=== PATIENT | male | born 1955 | race Caucasian/White ===

== ENCOUNTER → 2021-08-20 | Outpatient (CLI) | payer MEDICARE ==
[~2021-08-20] VITALS: Ht 180.3 cm; Wt 102.1 kg
[2021-08-20] VITALS (7 sets, daily range): BP systolic 118–130; BP diastolic 62–77
[~2021-08-20] MED LIST: ACETAMINOPHEN 325 MG TAB PO ONE; ERGO1CAP23 PO; GLIP10TA9 PO; HYDR-4833 PO; METF-370 PO; PANT40TA2 PO; REGENERON 1200mg/250ml NS 250 ML IV ONE
[2021-08-28 09:52] LABS: % Iron Saturation 6.5 % (20-55)
== END | disposition home or self-care (01) ==
LOC: ER 12:03
PROVIDERS: ATTEND Internal Medicine
DX: U07.1 COVID-19 (principal); J96.10 Chronic respiratory failure, unspecified whether with hypoxia or hypercapnia; E11.9 Type 2 diabetes mellitus without complications; E07.9 Disorder of thyroid, unspecified
CPT/HCPCS: 36415; 82728; 83540; 83550; 85652; 86141; J7050; M0243; Q0244

== ENCOUNTER 2021-08-28 08:07 | Inpatient (IN) | payer MEDICARE ==
[~2021-08-28] VITALS: Ht 180.3 cm; Wt 96.5 kg
[2021-08-28 09:12] LABS: Basophils # (auto) 0.1 10 ^3/uL (0-0.2); Basophils % (auto) 1.4 % (0.0-2.0); Eosinophils # (auto) 0 10 ^3/uL (0-0.8); Eosinophils % (auto) 0.2 % (0.0-7.0); Hematocrit 31.2 % (41.0-53.0); Hemoglobin 10.5 g/dL (13.5-17.5); Lymphocytes # (auto) 0.7 10 ^3/uL (0.4-5.4); Lymphocytes % (auto) 8.1 % (10.0-50.0); Mean Corpuscular Hemoglobin 28.6 pg (28.0-32.0); Mean Corpuscular Hgb Conc. 33.6 g/dL (32.0-36.0); Mean Corpuscular Volume 85.1 fL (80.0-100.0); Monocytes # (auto) 1.1 10 ^3/uL (0-1.3); Monocytes % (auto) 12.1 % (0.0-12.0); Neutrophils % (auto) 78.2 % (37.0-80.0); Red Blood Cells 3.67 10^6/uL (4.5-5.90); Red Cell Distribution Width 13.8 % (11.8-14.3)
[2021-08-28] MEDS ORDERED: LACTATED RINGER'S 1,000 ML IV ONE (09:15)
[2021-08-28] MEDS ORDERED: DexAMETHasone SOD PHOS 10MG/1ML VIAL INJ IM ONE (09:15)
[2021-08-28 09:28] LABS: INR 1.21 (0.9-1.15); Partial Thromboplastin Time 31.4 sec (23.6-33.0)
[2021-08-28 09:35] LABS: Albumin 2.2 g/dL (3.4-5.0); Calcium 8.4 mg/dL (8.5-10.1); Magnesium 2.2 mg/dL (1.6-2.6); Potassium 3.6 mmol/L (3.5-5.1)
[2021-08-28 09:41] LABS: BUN/Creatinine Ratio 8.9; Bilirubin, Total 0.6 mg/dL (0.2-1.0); Total Protein 6.5 g/dL (6.4-8.2)
[2021-08-28] MEDS ORDERED: IOHEXOL 350 MG/ML 100ML IJ ONE (11:32)
[2021-08-28] MEDS ORDERED: REMDESIVIR PER PHARMACY 0 ML IV SCH (15:00)
[2021-08-28] MEDS ORDERED: HYDROcodone-ACET 5/325MG TAB PO PRN (15:00)
[2021-08-28] MEDS ORDERED: DOCUSATE SOD 100 MG CAP PO PRN (15:00)
[2021-08-28] MEDS ORDERED: ACETAMINOPHEN 325 MG TAB PO PRN (15:00)
[2021-08-28] MEDS ORDERED: ONDANSETRON HCL 4 MG/2 ML VIAL IV PRN (15:00)
[2021-08-28] MEDS ORDERED: HYDROmorphone HCL 2 MG/ML VL IV PRN (15:00)
[2021-08-28] MEDS ORDERED: DEXTROSE (50%) 50ML SYRG IV PRN (15:00)
[2021-08-28] MEDS ORDERED: ERGOCALCIFEROL 50,000 UNIT(1.25MG) CAP PO SCH (17:45)
[2021-08-28] MEDS: ACCU-CHEK COMFORT CURVE STRIP VI SCH ×2 (18:13→22:24)
[2021-08-28] MEDS: ENOXAPARIN SOD 40 MG/0.4 ML SYRINGE SC SCH (18:39)
[2021-08-28] MEDS: InsuLIN REG 1unit/0.01ml Soln (100units/ml) SC SCH ×2 (18:40→22:26)
[2021-08-28] MEDS: ALBUTEROL SULF 2.5 MG/0.5ML(0.5%) NEB SOLN NEB SCH (19:23)
[2021-08-28] MEDS: BUDESONIDE (INHALATION) 0.5 MG/2 ML NEB NEB SCH (19:25)
[2021-08-28] MEDS: IPRATROPIUM BROM 0.5 MG/2.5ML INH SOL NEB PRN (19:25)
[2021-08-28] MEDS ORDERED: REMDESIVIR 200 MG in NS 210ml LOADING DOSE ADULT IV ONE (20:00)
[2021-08-28 21:09] LABS: Urine Bacteria NONE SEEN /hpf (None Seen); Urine Blood Negative /uL (Negative); Urine Specific Gravity 1.046 (1.001-1.035); Urine WBC 1 /hpf (0 - 3)
[2021-08-28 21:36] VITALS: BP 144/75
[2021-08-28] MEDS: PANTOPRAZOLE 40 MG/10 ML VIAL INJ IV SCH (22:19)
[2021-08-28] MEDS: SODIUM CHLOR 0.9% PF (SALINE LOCK) 10ML VIAL/SYR IV SCH (22:24)
[2021-08-28] MEDS ORDERED: PNEUMOCOCCAL VACC POLYS 25 MCG/0.5 ML VIAL IM ONE (23:45)
[2021-08-28] MEDS ORDERED: INFLUENZA QUAD 2021-2022 0.5 ML SYRG IM ONE (23:45)
[2021-08-29] VITALS (8 sets, daily range): BP systolic 106–144; BP diastolic 66–75
[2021-08-29] MEDS: IPRATROPIUM BROM 0.5 MG/2.5ML INH SOL NEB PRN ×4 (00:07→18:45)
[2021-08-29] MEDS ORDERED: GLIP10TA9 PO (00:07)
[2021-08-29] MEDS ORDERED: METF-370 PO (00:07)
[2021-08-29] MEDS ORDERED: HYDR-4833 PO (00:07)
[2021-08-29] MEDS ORDERED: PANT40TA2 PO (00:07)
[2021-08-29] MEDS: ALBUTEROL SULF 2.5 MG/0.5ML(0.5%) NEB SOLN NEB SCH ×4 (00:07→18:45)
[2021-08-29] MEDS ORDERED: ERGO1CAP23 PO (00:07)
[2021-08-29] MEDS: ENOXAPARIN SOD 40 MG/0.4 ML SYRINGE SC SCH ×2 (05:23→18:00)
[2021-08-29] MEDS: SODIUM CHLOR 0.9% PF (SALINE LOCK) 10ML VIAL/SYR IV SCH ×3 (05:23→21:47)
[2021-08-29 05:49] LABS: Basophils # (auto) 0 10 ^3/uL (0-0.2); Eosinophils # (auto) 0 10 ^3/uL (0-0.8); Hematocrit 31.2 % (41.0-53.0); Neutrophils % (auto) 87.9 % (37.0-80.0)
[2021-08-29 05:51] LABS: Basophils % (auto) 0.1 % (0.0-2.0); Hemoglobin 10.7 g/dL (13.5-17.5); Lymphocytes # (auto) 0.4 10 ^3/uL (0.4-5.4); Lymphocytes % (auto) 3.3 % (10.0-50.0); Mean Corpuscular Hemoglobin 29.3 pg (28.0-32.0); Mean Corpuscular Hgb Conc. 34.5 g/dL (32.0-36.0); Mean Corpuscular Volume 85.1 fL (80.0-100.0); Monocytes # (auto) 1.1 10 ^3/uL (0-1.3); Monocytes % (auto) 8.7 % (0.0-12.0); Neutrophils # (auto) 10.9 10 ^3/uL (1.6-8.6); Red Blood Cells 3.66 10^6/uL (4.5-5.90); Red Cell Distribution Width 13.9 % (11.8-14.3); White Blood Cell 12.4 10^3/uL (4.4-10.8)
[2021-08-29 06:08] LABS: Potassium 4.5 mmol/L (3.5-5.1)
[2021-08-29 06:16] LABS: Albumin 2.3 g/dL (3.4-5.0); BUN/Creatinine Ratio 13.6; Bilirubin, Total 0.4 mg/dL (0.2-1.0); Calcium 8.8 mg/dL (8.5-10.1); Magnesium 2.7 mg/dL (1.6-2.6); Total Protein 6.2 g/dL (6.4-8.2)
[2021-08-29] MEDS: ACCU-CHEK COMFORT CURVE STRIP VI SCH ×4 (06:17→21:46)
[2021-08-29] MEDS: InsuLIN REG 1unit/0.01ml Soln (100units/ml) SC SCH ×4 (06:21→22:02)
[2021-08-29] MEDS: BUDESONIDE (INHALATION) 0.5 MG/2 ML NEB NEB SCH ×2 (08:50→18:47)
[2021-08-29] MEDS ORDERED: SODIUM CHL 0.9% IV ONE (10:00)
[2021-08-29] MEDS ORDERED: TOCILIZUMAB IV ONE (10:00)
[2021-08-29] MEDS: PANTOPRAZOLE 40 MG/10 ML VIAL INJ IV SCH ×2 (10:12→21:45)
[2021-08-29] MEDS: FUROSEMIDE 20 MG/2 ML VIAL IV SCH (10:13)
[2021-08-29] MEDS: DexAMETHasone SOD PHOS 10MG/1ML VIAL INJ IV SCH (10:14)
[2021-08-29] MEDS: DOXYCYCLINE 100 MG TAB/CAP PO SCH ×2 (10:14→21:45)
[2021-08-29] MEDS: INSULIN LANTUS (GLARGINE) 1 /0.01ml (100units/ml) SC SCH ×2 (10:23→22:03)
[2021-08-29] MEDS: SUCRALFATE 1 GM/10 ML ORAL SUSP PO SCH ×2 (12:03→17:29)
[2021-08-29] MEDS ORDERED: INSULIN LISPRO (HUMAN) 100 UNITS/ML ML SC ONE (12:30)
[2021-08-29] MEDS: PIPERACILLIN-TAZOB 3.375GM 100 ML IV SCH ×2 (13:12→21:45)
[2021-08-29] MEDS: REMDESIVIR 100mg 100 MG in SODIUM CHL 0.9% 230 ML IV SCH (15:45)
[2021-08-30] MEDS: IPRATROPIUM BROM 0.5 MG/2.5ML INH SOL NEB PRN ×2 (00:10→18:14)
[2021-08-30] MEDS: ALBUTEROL SULF 2.5 MG/0.5ML(0.5%) NEB SOLN NEB SCH ×4 (00:10→18:14)
[2021-08-30 05:00] VITALS: BP 134/80
[2021-08-30] MEDS: SODIUM CHLOR 0.9% PF (SALINE LOCK) 10ML VIAL/SYR IV SCH ×3 (05:11→22:04)
[2021-08-30] MEDS: ENOXAPARIN SOD 40 MG/0.4 ML SYRINGE SC SCH ×2 (05:12→17:11)
[2021-08-30] MEDS: PIPERACILLIN-TAZOB 3.375GM 100 ML IV SCH ×3 (05:12→22:04)
[2021-08-30] MEDS: BUDESONIDE (INHALATION) 0.5 MG/2 ML NEB NEB SCH ×2 (06:23→18:14)
[2021-08-30] MEDS: SUCRALFATE 1 GM/10 ML ORAL SUSP PO SCH ×3 (06:35→17:14)
[2021-08-30] MEDS: InsuLIN REG 1unit/0.01ml Soln (100units/ml) SC SCH ×4 (06:36→22:05)
[2021-08-30] MEDS: ACCU-CHEK COMFORT CURVE STRIP VI SCH ×4 (06:36→22:07)
[2021-08-30 06:57] LABS: Basophils # (auto) 0 10 ^3/uL (0-0.2); Eosinophils # (auto) 0 10 ^3/uL (0-0.8); Hematocrit 29.1 % (41.0-53.0); Hemoglobin 9.9 g/dL (13.5-17.5); Lymphocytes # (auto) 0.5 10 ^3/uL (0.4-5.4); Lymphocytes % (auto) 3.5 % (10.0-50.0); Mean Corpuscular Hemoglobin 28.9 pg (28.0-32.0); Mean Corpuscular Volume 85.1 fL (80.0-100.0); Monocytes # (auto) 0.8 10 ^3/uL (0-1.3); Neutrophils # (auto) 11.8 10 ^3/uL (1.6-8.6); Neutrophils % (auto) 90.5 % (37.0-80.0); Red Blood Cells 3.42 10^6/uL (4.5-5.90); Red Cell Distribution Width 13.8 % (11.8-14.3); White Blood Cell 13.1 10^3/uL (4.4-10.8)
[2021-08-30 07:01] LABS: Calcium 8.8 mg/dL (8.5-10.1); Potassium 4.4 mmol/L (3.5-5.1)
[2021-08-30 07:06] LABS: Albumin 2.3 g/dL (3.4-5.0); BUN/Creatinine Ratio 24.4; Bilirubin, Total 0.2 mg/dL (0.2-1.0)
[2021-08-30 09:00] VITALS: BP 129/62
[2021-08-30] MEDS: INSULIN LANTUS (GLARGINE) 1 /0.01ml (100units/ml) SC SCH ×2 (09:30→22:07)
[2021-08-30] MEDS: DexAMETHasone SOD PHOS 10MG/1ML VIAL INJ IV SCH (09:53)
[2021-08-30] MEDS: PANTOPRAZOLE 40 MG/10 ML VIAL INJ IV SCH ×2 (09:57→22:03)
[2021-08-30] MEDS: FUROSEMIDE 20 MG/2 ML VIAL IV SCH (09:57)
[2021-08-30] MEDS: DOXYCYCLINE 100 MG TAB/CAP PO SCH ×2 (09:58→22:04)
[2021-08-30 13:00] VITALS: BP 116/66
[2021-08-30] MEDS: REMDESIVIR 100mg 100 MG in SODIUM CHL 0.9% 230 ML IV SCH (15:25)
[2021-08-30 17:00] VITALS: BP 122/78
[2021-08-30] MEDS: INSULIN LISPRO (HUMAN) 100 UNITS/ML ML SC SCH ×2 (17:14→22:06)
[2021-08-30 22:00] VITALS: BP 120/72
[2021-08-31 05:00] VITALS: BP 128/71
[2021-08-31] MEDS: SODIUM CHLOR 0.9% PF (SALINE LOCK) 10ML VIAL/SYR IV SCH ×3 (05:32→20:53)
[2021-08-31] MEDS: ENOXAPARIN SOD 40 MG/0.4 ML SYRINGE SC SCH ×2 (05:33→17:58)
[2021-08-31] MEDS: PIPERACILLIN-TAZOB 3.375GM 100 ML IV SCH ×3 (05:33→20:54)
[2021-08-31] MEDS: BUDESONIDE (INHALATION) 0.5 MG/2 ML NEB NEB SCH ×2 (06:22→18:21)
[2021-08-31] MEDS: ALBUTEROL SULF 2.5 MG/0.5ML(0.5%) NEB SOLN NEB SCH ×4 (06:22→18:21)
[2021-08-31 06:35] LABS: Basophils # (auto) 0 10 ^3/uL (0-0.2); Basophils % (auto) 0.2 % (0.0-2.0); Eosinophils # (auto) 0 10 ^3/uL (0-0.8); Hemoglobin 10.1 g/dL (13.5-17.5); Monocytes # (auto) 0.9 10 ^3/uL (0-1.3)
[2021-08-31 06:37] LABS: Hematocrit 29.9 % (41.0-53.0); Lymphocytes % (auto) 8.4 % (10.0-50.0); Mean Corpuscular Hemoglobin 28.5 pg (28.0-32.0); Mean Corpuscular Hgb Conc. 33.8 g/dL (32.0-36.0); Mean Corpuscular Volume 84.5 fL (80.0-100.0); Monocytes % (auto) 7.7 % (0.0-12.0); Neutrophils % (auto) 83.7 % (37.0-80.0); Red Blood Cells 3.53 10^6/uL (4.5-5.90); Red Cell Distribution Width 14.1 % (11.8-14.3)
[2021-08-31] MEDS: InsuLIN REG 1unit/0.01ml Soln (100units/ml) SC SCH ×4 (06:54→20:47)
[2021-08-31] MEDS: ACCU-CHEK COMFORT CURVE STRIP VI SCH ×4 (06:54→20:55)
[2021-08-31] MEDS: SUCRALFATE 1 GM/10 ML ORAL SUSP PO SCH ×3 (06:54→17:47)
[2021-08-31 06:59] LABS: Albumin 2.4 g/dL (3.4-5.0); Calcium 8.6 mg/dL (8.5-10.1); Potassium 4.2 mmol/L (3.5-5.1)
[2021-08-31] MEDS: INSULIN LISPRO (HUMAN) 100 UNITS/ML ML SC SCH ×4 (06:59→20:47)
[2021-08-31 07:04] LABS: BUN/Creatinine Ratio 20.2; Bilirubin, Total 0.2 mg/dL (0.2-1.0); Total Protein 5.7 g/dL (6.4-8.2)
[2021-08-31 08:30] VITALS: BP 111/68
[2021-08-31] MEDS: INSULIN LANTUS (GLARGINE) 1 /0.01ml (100units/ml) SC SCH ×2 (09:50→20:47)
[2021-08-31] MEDS: PANTOPRAZOLE 40 MG/10 ML VIAL INJ IV SCH ×2 (10:03→20:53)
[2021-08-31] MEDS: FUROSEMIDE 20 MG/2 ML VIAL IV SCH (10:04)
[2021-08-31] MEDS: DexAMETHasone SOD PHOS 10MG/1ML VIAL INJ IV SCH (10:04)
[2021-08-31] MEDS: DOXYCYCLINE 100 MG TAB/CAP PO SCH ×2 (10:40→20:55)
[2021-08-31 12:30] VITALS: BP 115/71
[2021-08-31] MEDS: REMDESIVIR 100mg 100 MG in SODIUM CHL 0.9% 230 ML IV SCH (14:30)
[2021-08-31 16:40] VITALS: BP 117/69
[2021-08-31] MEDS: IPRATROPIUM BROM 0.5 MG/2.5ML INH SOL NEB PRN (18:21)
[2021-08-31 21:42] VITALS: BP 122/70
[2021-09-01 05:02] VITALS: BP 115/67
[2021-09-01] MEDS: InsuLIN REG 1unit/0.01ml Soln (100units/ml) SC SCH ×4 (05:24→20:54)
[2021-09-01] MEDS: INSULIN LISPRO (HUMAN) 100 UNITS/ML ML SC SCH ×4 (05:24→20:53)
[2021-09-01] MEDS: ENOXAPARIN SOD 40 MG/0.4 ML SYRINGE SC SCH (05:25)
[2021-09-01] MEDS: SODIUM CHLOR 0.9% PF (SALINE LOCK) 10ML VIAL/SYR IV SCH ×3 (05:25→21:00)
[2021-09-01] MEDS: PIPERACILLIN-TAZOB 3.375GM 100 ML IV SCH (05:25)
[2021-09-01] MEDS: ACCU-CHEK COMFORT CURVE STRIP VI SCH ×4 (05:25→21:00)
[2021-09-01] MEDS: SUCRALFATE 1 GM/10 ML ORAL SUSP PO SCH ×2 (05:26→12:05)
[2021-09-01 05:41] LABS: Albumin 2.4 g/dL (3.4-5.0); Calcium 8.6 mg/dL (8.5-10.1); Potassium 3.9 mmol/L (3.5-5.1)
[2021-09-01 05:45] LABS: BUN/Creatinine Ratio 17.6; Bilirubin, Total 0.3 mg/dL (0.2-1.0); Total Protein 5.6 g/dL (6.4-8.2)
[2021-09-01] MEDS: BUDESONIDE (INHALATION) 0.5 MG/2 ML NEB NEB SCH ×2 (05:51→18:34)
[2021-09-01] MEDS: IPRATROPIUM BROM 0.5 MG/2.5ML INH SOL NEB PRN ×3 (05:51→18:35)
[2021-09-01] MEDS: ALBUTEROL SULF 2.5 MG/0.5ML(0.5%) NEB SOLN NEB SCH ×4 (05:51→18:34)
[2021-09-01 09:00] VITALS: BP 153/74
[2021-09-01] MEDS ORDERED: IOHEXOL 350 MG/ML 100ML IJ ONE (09:16)
[2021-09-01] MEDS: DexAMETHasone SOD PHOS 10MG/1ML VIAL INJ IV SCH (10:04)
[2021-09-01] MEDS: PANTOPRAZOLE 40 MG/10 ML VIAL INJ IV SCH ×2 (10:05→21:00)
[2021-09-01] MEDS: INSULIN LANTUS (GLARGINE) 1 /0.01ml (100units/ml) SC SCH ×2 (10:09→20:54)
[2021-09-01] MEDS: DOXYCYCLINE 100 MG TAB/CAP PO SCH ×2 (10:11→21:00)
[2021-09-01] MEDS: FUROSEMIDE 20 MG/2 ML VIAL IV SCH (10:11)
[2021-09-01 13:38] VITALS: BP 112/82
[2021-09-01] MEDS ORDERED: SUCRALFATE 1 GM TAB PO ONE (14:00)
[2021-09-01] MEDS: REMDESIVIR 100mg 100 MG in SODIUM CHL 0.9% 230 ML IV SCH (15:59)
[2021-09-01 16:25] VITALS: BP 126/80
[2021-09-01] MEDS: SUCRALFATE 1 GM TAB PO SCH ×2 (17:42→21:00)
[2021-09-01] MEDS: APIXABAN 5 MG TAB PO SCH (21:00)
[2021-09-01 22:31] VITALS: BP 117/80
[2021-09-02 05:23] VITALS: BP 121/80
[2021-09-02] MEDS: INSULIN LISPRO (HUMAN) 100 UNITS/ML ML SC SCH ×2 (05:27→11:30)
[2021-09-02] MEDS: ACCU-CHEK COMFORT CURVE STRIP VI SCH ×2 (05:29→11:18)
[2021-09-02] MEDS: InsuLIN REG 1unit/0.01ml Soln (100units/ml) SC SCH ×2 (05:29→11:19)
[2021-09-02] MEDS: SUCRALFATE 1 GM TAB PO SCH ×2 (05:30→11:00)
[2021-09-02] MEDS: SODIUM CHLOR 0.9% PF (SALINE LOCK) 10ML VIAL/SYR IV SCH (05:30)
[2021-09-02 06:45] LABS: Basophils # (auto) 0 10 ^3/uL (0-0.2); Basophils % (auto) 0.2 % (0.0-2.0); Eosinophils # (auto) 0 10 ^3/uL (0-0.8); Eosinophils % (auto) 0.2 % (0.0-7.0); Hematocrit 35.1 % (41.0-53.0); Hemoglobin 11.9 g/dL (13.5-17.5); Lymphocytes # (auto) 1.6 10 ^3/uL (0.4-5.4); Lymphocytes % (auto) 15.9 % (10.0-50.0); Mean Corpuscular Volume 85.4 fL (80.0-100.0); Monocytes # (auto) 0.9 10 ^3/uL (0-1.3); Monocytes % (auto) 8.9 % (0.0-12.0); Neutrophils # (auto) 7.7 10 ^3/uL (1.6-8.6); Neutrophils % (auto) 74.8 % (37.0-80.0); Nucleated Red Blood Cells % 0.3 %; Red Blood Cells 4.11 10^6/uL (4.5-5.90); Red Cell Distribution Width 14.5 % (11.8-14.3); White Blood Cell 10.3 10^3/uL (4.4-10.8)
[2021-09-02 07:03] LABS: Albumin 2.6 g/dL (3.4-5.0)
[2021-09-02 07:06] LABS: Bilirubin, Total 0.4 mg/dL (0.2-1.0)
[2021-09-02 09:00] VITALS: BP 129/68
[2021-09-02] MEDS: ALBUTEROL SULF 2.5 MG/0.5ML(0.5%) NEB SOLN NEB SCH ×2 (09:15)
[2021-09-02] MEDS: IPRATROPIUM BROM 0.5 MG/2.5ML INH SOL NEB PRN (09:15)
[2021-09-02] MEDS: BUDESONIDE (INHALATION) 0.5 MG/2 ML NEB NEB SCH (09:15)
[2021-09-02] MEDS ORDERED: DexAMETHasone SOD PHOS 10MG/1ML VIAL INJ IV SCH (10:00)
[2021-09-02] MEDS: DOXYCYCLINE 100 MG TAB/CAP PO SCH (11:00)
[2021-09-02] MEDS: INSULIN LANTUS (GLARGINE) 1 /0.01ml (100units/ml) SC SCH (11:15)
[2021-09-02] MEDS: APIXABAN 5 MG TAB PO SCH (11:16)
[2021-09-02] MEDS: PANTOPRAZOLE 40 MG/10 ML VIAL INJ IV SCH (11:16)
[2021-09-02 15:40] VITALS: BP 153/74
[2021-09-08] MEDS ORDERED: APIXABAN 5 MG TAB PO SCH (22:00)
== END 2021-09-02 17:10 | disposition home or self-care (01) | DRG 177 ==
LOC: ER 08:07 → TELE 14:54 → TELE-EAST 21:32
PROVIDERS: ADMIT Internal Medicine; ATTEND Internal Medicine
PROC: XW033E5 Introduction of Remdesivir Anti-infective into Peripheral Vein, Percutaneous Approach, New Technology Group 5 (ICD-10-PCS; principal; 2021-08-28)
PROC: XW033H5 Introduction of Tocilizumab into Peripheral Vein, Percutaneous Approach, New Technology Group 5 (ICD-10-PCS; 2021-08-29)
DX: U07.1 COVID-19 (principal); J12.82 Pneumonia due to coronavirus disease 2019; J96.01 Acute respiratory failure with hypoxia; I26.99 Other pulmonary embolism without acute cor pulmonale; D89.834 Cytokine release syndrome, grade 4; E11.9 Type 2 diabetes mellitus without complications; E55.9 Vitamin D deficiency, unspecified; K80.20 Calculus of gallbladder without cholecystitis without obstruction; E07.9 Disorder of thyroid, unspecified; R00.0 Tachycardia, unspecified; R97.20 Elevated prostate specific antigen [PSA]
CPT/HCPCS: 36415; 71045; 71275; 80053; 81001; 82306; 82728; 82962; 83036; 83615; 83735; 83880; 84443; 84484; 85025; 85379; 85610; 85652; 85730; 86141; 87070; 87205; 87426; 93005; 93306; 93970; 94640; 96360; 96372; C9113; G0378; J1100; J1815; J2543